=== PATIENT | female | born 1995 | race Caucasian/White ===

== ENCOUNTER 2022-08-19 10:13 | Outpatient (CLI) | payer OTHER ==
--- NOTE | 2022-08-19 14:39 | MRI Report ---
PROCEDURE: THORACIC SPINE WO INDICATIONS: DORSALGIA TECHNIQUE: Noncontrast sagittal T1 spine echo and T2 fast spin echo, sagittal STIR, axial T1 and T2 fast spin ec ho through the thoracic spine. COMPARISON: None. FINDINGS: Image quality: Excellent. Alignment and Curvature: There is normal bony alignment. Bone Marrow: Marrow is of normal overall signal. No acute vertebral body compression fractures. Spinal Cord: Visualized spinal cord is normal in size and signal. Paraspinous Soft Tissues: No paravertebral masses. Miscellaneous: On axial images, there is central to left-sided disc protrusion at T10-11 level with extruded disc material extending along posterior aspect of T11 vertebral body causing mild central ca nal stenosis. No significant neural foraminal narrowing. IMPRESSION: 1. Central to left-sided disc protrusion/extrusion at T10-11 level with extruded disc extending along posterior aspect of T11 vertebral body causing mild central canal stenosis at this level. No signifi cant neural foraminal narrowing. 2. No marrow edema. No acute compression fracture or spondylolisthesis. No abnormal thoracic spinal c ord signal. 3. No gross paraspinous soft tissue abnormalities. Reviewed by: Jus Abebe MD on 08/19/2022 2:38 PM PST Approved by: Jus Abebe MD on 08/19/2022 2:38 PM PST Station ID: [id number]
== END 2022-08-19 10:14 | disposition home or self-care (01) ==
LOC: DI 10:13
PROVIDERS: ATTEND Physician Assistant
DX: M51.24 Other intervertebral disc displacement, thoracic region (principal); M48.04 Spinal stenosis, thoracic region

== ENCOUNTER 2023-09-02 07:45 | Outpatient (CLI) | payer OTHER | END 2023-09-02 08:00 | disposition home or self-care (01) | LOC: LAB.N 07:45 | PROVIDERS: ATTEND Physician Assistant Medical | DX: R10.31 Right lower quadrant pain (principal) | CPT/HCPCS: 87077; 87086 ==

== ENCOUNTER 2023-11-04 15:45 | Outpatient (CLI) | payer OTHER ==
--- NOTE | 2023-11-05 13:33 | MRI Report ---
PROCEDURE: MRI thoracic spine without contrast INDICATIONS: THORACIC TECHNIQUE: Multiplanar multisequence MR images of the thoracic spine was obtained without contrast COMPARISON: None FINDINGS: Alignment and Curvature: There is normal bony alignment. Bone Marrow: Marrow is of normal overall signal. No acute vertebral body compression fractures. Spinal Cord: Visualized spinal cord is normal in size and signal. Paraspinal Soft Tissues: No paravertebral masses. Miscellaneous: On axial images, central canal and foramina appear widely patent at all scanned level s. IMPRESSION: Unremarkable MRI of the thoracic spine Reviewed by: Lang Jaime MD on 11/05/2023 12:32 PM OMARI Approved by: Lang Jaime MD on 11/05/2023 12:32 PM AKDT Station ID: [id number]
--- NOTE | 2023-11-05 13:53 | MRI Report ---
PROCEDURE: MRI lumbar spine without contrast INDICATIONS: Low back pain TECHNIQUE: Multiplanar multisequential MRI images of the lumbar spine were obtained without intraven ous contrast. COMPARISON: None. FINDINGS: Alignment and Curvature: There is normal bony alignment. Bone Marrow: There is partial nonsegmentation at L3-4 with a rudimentary disc noted anteriorly Spinal Cord: Conus medullaris terminates at the L1 level. Visualized cord demonstrates normal signa l and size. Paraspinal Soft Tissues: Unremarkable perivertebral soft tissues. T12-L1: Normal in appearance. L1-L2: Normal in appearance. L2-L3: Normal in appearance. L3-L4: Partial L3 and L4 nonsegmentation. Hypoplastic L4 right pedicle, and the associated articula r facets are absent. No central stenosis is present. Hypoplastic bilateral neural foramen . Nonsegmen aguila spinous process L4-L5: Normal in appearance. L5-S1: Disc space narrowing and broad-based disc bulge with high intensity zone in the posterior an nulus. No central or foraminal stenosis. 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
== END 2023-11-04 15:46 | disposition home or self-care (01) ==
LOC: DI 15:45
PROVIDERS: ATTEND Nurse Practitioner Family
DX: M51.37 Other intervertebral disc degeneration, lumbosacral region (principal); Q76.49 Other congenital malformations of spine, not associated with scoliosis